=== PATIENT | male | born 2000 | race Caucasian/White ===

== ENCOUNTER 2022-07-28 14:23 | Inpatient (IN) ==
[2022-07-28 15:55] LABS: ABS Eosinophils 0.1 10^3/ul (0-0.6); ABS Lymphocytes 1.3 10^3/ul (1.0-4.8); ABS Monocytes 0.5 10^3/ul (0-0.8); Eosinophil % 0.7 %; Hematocrit 42 % (42-52); Hemoglobin 14.6 g/dL (14.0-18.0); Lymphocyte % 16.3 %; Mean Corpuscular HGB Conc 35 g/dL (31-36); Mean Corpuscular Hemoglobin 35 pg (27-31); Mean Corpuscular Volume 98 fL (80-94); Platelet Count 290 10^3/uL (150-450); Red Blood Count 4.22 10^6 /uL (4.18-5.48); Red Cell Distribution Width 12 % (10-15); White Blood Count 7.8 10^3/uL (3.5-10.8)
[2022-07-28 16:26] LABS: ALT 10 U/L (7-52); AST 12 U/L (13-39); Acetaminophen < 15 mcg/mL; Albumin 4.9 g/dL (3.2-5.2); Albumin/Globulin Ratio 1.9 (1-3); Alcohol, S < 13 mg/dL (<13); Alkaline Phosphatase 61 U/L (35-149); Anion Gap 8 mmol/L (2-11); Blood Urea Nitrogen 12 mg/dL (6-24); CO2 Carbon Dioxide 27 mmol/L (22-32); Calcium 9.7 mg/dL (8.6-10.3); Chloride 100 mmol/L (101-111); Globulin 2.6 g/dL (2-4); Glucose 80 mg/dL (70-100); Potassium 4.7 mmol/L (3.5-5.0); Salicylate < 2.50 mg/dL (<30); Sodium 135 mmol/L (135-145); Total Protein 7.5 g/dL (6.4-8.9); eGFR CKD-EPI 124.7 (>60)
[2022-07-28 16:34] LABS: TSH Ultra Thyroid Stim Horm 1.04 mcIU/mL (0.34-5.60)
[2022-07-28 18:25] LABS: Urine Benzodiazepine Screen None Detected (None Detect); Urine Cannabinoids Screen Presumptive Positive (None Detect); Urine Opiates Screen None Detected (None Detect)
[2022-07-28] MEDS ORDERED: Al Hydrox/Mg Hydrox/Simet LIQ 30 ML UDC PO PRN (23:16)
[2022-07-29] MEDS: Vitamin THERAPEUTIC TAB PO SCH (09:05)
[2022-07-29] MEDS: CMCS: Estradiol 1 mg TAB (NF) PO SCH (21:10)
[2022-07-29] MEDS: CMCS: Progesterone MICRONIZ 200 (NF) CAP PO SCH (21:12)
[2022-07-30] MEDS: Vitamin THERAPEUTIC TAB PO SCH (10:15)
[2022-07-30] MEDS: CMCS: Estradiol 1 mg TAB (NF) PO SCH ×2 (10:16→21:06)
[2022-07-30] MEDS: CMCS: Progesterone MICRONIZ 200 (NF) CAP PO SCH (21:06)
[2022-07-31] MEDS: CMCS: Estradiol 1 mg TAB (NF) PO SCH ×2 (08:50→21:09)
[2022-07-31] MEDS: Vitamin THERAPEUTIC TAB PO SCH (08:52)
[2022-07-31] MEDS: CMCS: Progesterone MICRONIZ 200 (NF) CAP PO SCH (21:10)
[2022-08-01 08:27] VITALS: BP 135/85
[2022-08-01] MEDS: CMCS: Estradiol 1 mg TAB (NF) PO SCH (09:05)
[2022-08-01] MEDS: Vitamin THERAPEUTIC TAB PO SCH (09:05)
== END 2022-08-01 13:15 | disposition home or self-care (01) | DRG 885 ==
LOC: ED 14:23 → BSU 22:40
PROVIDERS: ADMIT Psychiatry & Neurology Psychiatry; ATTEND Psychiatry & Neurology Psychiatry